=== PATIENT | male | born 1940 | race Caucasian/White ===

== ENCOUNTER 2019-11-13 10:57 | Inpatient (IN) | payer OTHER ==
[~2019-11-13] VITALS: Ht 172.7 cm; Wt 83.0 kg
--- NOTE | ~2019-11-13 | HC ---
[facility] [place] [address] CONSULTATION Name: LENO SUH Room #: 207-P [facility] IN M.R.#: [id number] Admission: 11/18/19 Attend Phys: Lewis Alvarez MD Discharge: Date of : 41 Report #: [id number] THIS REPORT FOR: //name// CC: Gabriel Alvarez DATE OF SERVICE: 11/24/2019 HISTORY OF PRESENT ILLNESS: The patient is as a 79-year-old white male with a history of coronary artery disease, diabetes mellitus type 2, prior history of CVA with residual aphasia and noted multiple TIAs, who was admitted with worsening coronary artery disease. He underwent coronary artery bypass grafting x 5 on 11/18/2019. His course was complicated by acute hypoxic respiratory failure. He had an episode of hypoglycemia. Small pleural effusion. He does have functional deficits with decreased balance and we are seeing him in rehabilitation medicine consultation. PAST MEDICAL HISTORY: Includes heart disease, hypertension. He was noted to have the CVA with some residual aphasia as noted above. He is uncertain what year it occurred and notes his would have all the dates. There is also a history of prior TIAs per the records. It is noted that the patient will need to resume Plavix once cleared by Surgery. MEDICATIONS: Please see the full medication listing. SOCIAL HISTORY: Lives with his , [address]-cruz home, was premorbidly independent, although he utilized a walker at times. He did have some premorbid balance issues and premorbid residual aphasia. REVIEW OF SYSTEMS: No current complaints of chest pain, shortness of breath or abdominal discomfort. PHYSICAL EXAMINATION: GENERAL: A 79-year-old white male in no obvious distress. VITAL SIGNS: Temperature 36.5, pulse 95, respirations 18, blood pressure 128/64. The patient is alert. He appears to have a decreased memory, but can follow basic commands without difficulty. HEENT: Facies appeared to be symmetric. He may have some word finding problems. Mid sternal incision appears to be intact. EXTREMITIES: He has functional range of motion of both upper extremities. Strength is grade 4-/5. DTRs are trace to 1. Lower extremities, no focal calf swelling. Leg incisions are dressed. Functional range of motion with strength grade 3+ to 4-/5. DTRs are 1-2. He has some mild decreased proprioception of the right large toe. Functionally, he is mod assist from sit to stand. Gait was 250 feet min assist without a device. He has problems with spiritual awareness, will list to the left into the right. [address] [address] CONSULTATION Name: LENO SHU Room #: 207-P [facility] IN M.R.#: [id number] Admission: 11/18/19 Attend Phys: Lewis Alvarez MD Discharge: Date of : 41 Report #: [id number] ASSESSMENT: A 79-year-old white male with the following problems: 1. Late effect cerebrovascular accident. 2. Balance, spatial awareness and mobility deficits. 3. Coronary artery disease, status post coronary artery bypass grafting x 5. 4. Acute hypoxic respiratory failure. 5. Diabetes mellitus type 2 with episode of hypoglycemia. 6. Pleural effusion. 7. Decreased proprioception/likely some component of diabetic peripheral neuropathy. 8. History of transient ischemic attacks in the past. We will need to resume Plavix when cleared by Surgery. PLAN: The patient would benefit from a short acute in-hospital inpatient rehabilitation stay to further improve his balance and especially to work on transfers as he is currently mod assist coming to stand. Need to work on further improving his functional mobility and ADLs, so that he can return back to the home setting. Insurance precertification issues will be checked regarding a short acute in-hospital inpatient rehabilitation stay. Thank you for asking us to assist in this patient's care. By: 1040 [id number] Ramses Reyes MD /PMT
[~2019-11-13 10:57] MED LIST: AMARYL2 MG PO; ASA81BEC PO; CRESTOR5 MG PO; FISH OIL 1,0001 EAC9 PO; FUROSEMIDE 20 M20 MG PO; HYDROCHLOROTH12.5 M1 PO; JANUVIA 50 MG T50 MG PO; K-DUR10 MEQ PO; LATANOPROST 0.2.5 ML OPHTHALMIC; LEVEMIR100 UNIT/1 INJECTION; LISINOPRIL-HCT1 EACH PO; METFORMIN HCL500 MG PO; NITROGLYCERIN0.4 MG SUBLING; PLAVIX 75 MG TA75 MG PO; PRINIVIL10 MG PO; TIMOLOL MALEATE5 M1 OPHTHALMIC; TOPROL XL25 MG PO; TRESIBA100 UNIT/1 SUBQ
[2019-11-13] MEDS ORDERED: ASPIRIN EC325 M1 PO (13:33)
[2019-11-13 14:37] LABS: ABSOLUTE NEUTROPHILS 4.8 thou/uL (1.4-8.2); BASOPHILS 0.6 % (0.0-2.0); EOSINOPHILS 4.6 % (0.0-3.0); HEMATOCRIT 42.1 % (42.0-52.0); LYMPHOCYTES 22.5 % (24.0-44.0); MCH 30.2 pg (26.0-34.0); MCHC 33.3 g/dL (28.0-37.0); MCV 90.6 fL (80.0-100.0); MONOCYTES 7.7 % (1.0-8.0); PLATELET COUNT 410 thou/uL (150-400); POLYS 64.6 % (36.0-66.0); RBC 4.64 mil/uL (4.50-6.00); RDW 13.3 % (10.5-14.5); WBC 7.5 thou/uL (4.0-11.0)
[2019-11-13 14:51] LABS: ALBUMIN 4.1 g/dL (3.4-5.0); CREATININE 0.9 mg/dL (0.7-1.3); POTASSIUM 4.5 mmol/L (3.5-5.1); TOTAL BILIRUBIN 0.5 mg/dL (<0.1-1.0); TOTAL PROTEIN 8.9 g/dL (6.4-8.2)
[2019-11-13 14:54] LABS: URINE BILIRUBIN NEGATIVE (Negative); URINE BLOOD NEGATIVE (Negative); URINE CLARITY CLEAR; URINE COLOR YELLOW; URINE GLUCOSE-RANDOM* 2+ (Negative); URINE KETONES NEGATIVE (Negative); URINE LEUKOCYTES-REFLEX NEGATIVE (Negative); URINE NITRITE-REFLEX NEGATIVE (Negative); URINE PROTEIN (DIPSTICK) NEGATIVE (Negative); URINE SPECIFIC GRAVITY 1.015 (1.005-1.035); URINE UROBILINOGEN 0.2 E.U./dl (0.2-1.0)
[2019-11-13 14:58] LABS: APTT 31.7 Seconds (24.5-32.8); PROTIME 10.6 Seconds (9.3-11.4)
[2019-11-18] VITALS (33 sets, daily range): BP systolic 69–141; BP diastolic 35–69
[2019-11-18 12:07] LABS: HEMATOCRIT 20.4 % (42.0-52.0); HEMOGLOBIN 7.1 gm/dL (14.0-18.0); MCH 31.1 pg (26.0-34.0); MCHC 34.7 g/dL (28.0-37.0); MCV 89.9 fL (80.0-100.0); RBC 2.27 mil/uL (4.50-6.00); RDW 12.8 % (10.5-14.5); WBC 8.9 thou/uL (4.0-11.0)
[2019-11-18 12:19] LABS: APTT 32.6 Seconds (24.5-32.8); FIBRINOGEN 192.2 mg/dL (210-360); PROTIME 16.8 Seconds (9.3-11.4)
[2019-11-18 12:22] LABS: INR 1.6
[2019-11-18 12:44] LABS: POC BE 3 mmol/L (-2.0 to +3.0); POC CA IONIZED 3.8 mg/dL (4.5-5.3); POC GLUCOSE 67 mg/dL (70-99); POC HCO3 26.2 mmol/L (22.0-26.0); POC HEMOGLOBIN 7.8 g/dL (14.0-18.0); POC POTASSIUM 4.1 mmol/L (3.5-5.1); POC SODIUM 126 mmol/L (136-145); POC pCO2 32.7 mmHg (35.0-45.0); POC pH 7.512 (7.360-7.450)
[2019-11-18 12:44] LABS: POC BE 4 mmol/L (-2.0 to +3.0); POC CA IONIZED 4.4 mg/dL (4.5-5.3); POC GLUCOSE 79 mg/dL (70-99); POC HCO3 27.1 mmol/L (22.0-26.0); POC HEMOGLOBIN 10.9 g/dL (14.0-18.0); POC POTASSIUM 3.8 mmol/L (3.5-5.1); POC SODIUM 126 mmol/L (136-145); POC pCO2 32.3 mmHg (35.0-45.0); POC pH 7.533 (7.360-7.450)
[2019-11-18 12:44] LABS: POC BE 3 mmol/L (-2.0 to +3.0); POC CA IONIZED 4.5 mg/dL (4.5-5.3); POC GLUCOSE 64 mg/dL (70-99); POC HCO3 27.7 mmol/L (22.0-26.0); POC HEMOGLOBIN 10.5 g/dL (14.0-18.0); POC POTASSIUM 3.5 mmol/L (3.5-5.1); POC SODIUM 127 mmol/L (136-145); POC pCO2 41.3 mmHg (35.0-45.0); POC pH 7.434 (7.360-7.450)
[2019-11-18 12:44] LABS: POC BE -1 mmol/L (-2.0 to +3.0); POC CA IONIZED 2.8 mg/dL (4.5-5.3); POC GLUCOSE 66 mg/dL (70-99); POC HCO3 22.4 mmol/L (22.0-26.0); POC HEMOGLOBIN 8.8 g/dL (14.0-18.0); POC SODIUM 138 mmol/L (136-145); POC pCO2 30.6 mmHg (35.0-45.0); POC pH 7.472 (7.360-7.450)
[2019-11-18 12:45] LABS: POC BE 4 mmol/L (-2.0 to +3.0); POC CA IONIZED 4.7 mg/dL (4.5-5.3); POC GLUCOSE 104 mg/dL (70-99); POC HEMOGLOBIN 7.8 g/dL (14.0-18.0); POC POTASSIUM 3.6 mmol/L (3.5-5.1); POC SODIUM 129 mmol/L (136-145); POC pCO2 32.1 mmHg (35.0-45.0); POC pH 7.533 (7.360-7.450)
[2019-11-18 12:45] LABS: POC BE 4 mmol/L (-2.0 to +3.0); POC GLUCOSE 126 mg/dL (70-99); POC HCO3 27.6 mmol/L (22.0-26.0); POC HEMOGLOBIN 7.8 g/dL (14.0-18.0); POC POTASSIUM 4.7 mmol/L (3.5-5.1); POC SODIUM 128 mmol/L (136-145); POC pCO2 38.6 mmHg (35.0-45.0); POC pH 7.462 (7.360-7.450)
[2019-11-18 12:45] LABS: POC BE 1 mmol/L (-2.0 to +3.0); POC CA IONIZED 4.4 mg/dL (4.5-5.3); POC GLUCOSE 92 mg/dL (70-99); POC HCO3 24.6 mmol/L (22.0-26.0); POC HEMOGLOBIN 8.8 g/dL (14.0-18.0); POC POTASSIUM 3.3 mmol/L (3.5-5.1); POC SODIUM 132 mmol/L (136-145); POC pCO2 32.1 mmHg (35.0-45.0); POC pH 7.492 (7.360-7.450)
[2019-11-18 12:45] LABS: POC BE 4 mmol/L (-2.0 to +3.0); POC CA IONIZED 3.9 mg/dL (4.5-5.3); POC GLUCOSE 67 mg/dL (70-99); POC HCO3 26.6 mmol/L (22.0-26.0); POC HEMOGLOBIN 8.2 g/dL (14.0-18.0); POC POTASSIUM 3.9 mmol/L (3.5-5.1); POC SODIUM 127 mmol/L (136-145); POC pCO2 32.2 mmHg (35.0-45.0); POC pH 7.525 (7.360-7.450)
[2019-11-18 12:45] LABS: POC BE 5 mmol/L (-2.0 to +3.0); POC CA IONIZED 4.9 mg/dL (4.5-5.3); POC GLUCOSE 111 mg/dL (70-99); POC HEMOGLOBIN 7.1 g/dL (14.0-18.0); POC SODIUM 129 mmol/L (136-145); POC pH 7.511 (7.360-7.450)
[2019-11-18 12:45] LABS: POC BE 5 mmol/L (-2.0 to +3.0); POC CA IONIZED 4.2 mg/dL (4.5-5.3); POC GLUCOSE 126 mg/dL (70-99); POC HCO3 29.6 mmol/L (22.0-26.0); POC HEMOGLOBIN 7.5 g/dL (14.0-18.0); POC POTASSIUM 4.5 mmol/L (3.5-5.1); POC SODIUM 128 mmol/L (136-145); POC pH 7.426 (7.360-7.450)
[2019-11-18 12:45] LABS: POC BE 4 mmol/L (-2.0 to +3.0); POC CA IONIZED 3.9 mg/dL (4.5-5.3); POC GLUCOSE 159 mg/dL (70-99); POC HCO3 27.5 mmol/L (22.0-26.0); POC HEMOGLOBIN 8.2 g/dL (14.0-18.0); POC POTASSIUM 3.7 mmol/L (3.5-5.1); POC SODIUM 127 mmol/L (136-145); POC pCO2 34.9 mmHg (35.0-45.0); POC pH 7.504 (7.360-7.450)
--- NOTE | 2019-11-18 13:10 | NUR ---
RECIEVED PT FROM OR S/P CABG X 5. SEE PAPER FLOW SHEET FOR NOTES AND GTT TITRATIONS. BP VERY LABILE, TITRATING LEVOPHED.
[2019-11-18 13:39] LABS: HEMATOCRIT 27.4 % (42.0-52.0); MCH 30.1 pg (26.0-34.0); MCHC 33.7 g/dL (28.0-37.0); MCV 89.4 fL (80.0-100.0); RBC 3.06 mil/uL (4.50-6.00); RDW 13.2 % (10.5-14.5)
[2019-11-18 13:41] LABS: HEMOGLOBIN 9.2 gm/dL (14.0-18.0)
[2019-11-18 13:46] LABS: CALCIUM 7.9 mg/dL (8.5-10.1); CREATININE 0.6 mg/dL (0.7-1.3); POTASSIUM 3.6 mmol/L (3.5-5.1)
[2019-11-18 13:47] LABS: MAGNESIUM 2.1 mg/dL (1.8-2.4)
[2019-11-18 13:47] LABS: BE(vivo) -4.5 mmol/L (-2 to +3); HCO3 19.8 mmol/L (22.0-26.0); PCO2 33.3 mmHg (35.0-45.0); PO2 158.1 mmHg (80.0-100.0); pH 7.391 (7.360-7.450)
[2019-11-18 13:52] LABS: APTT 33.4 Seconds (24.5-32.8); INR 1.4; PROTIME 14.1 Seconds (9.3-11.4)
--- NOTE | 2019-11-18 18:00 | NUR ---
CALLED DR. CORNELL, RE . ORDERS GIVEN TO TRANSFUSE. UPDATE GIVEN. REPORTED DOBUTAMINE STARTED, CO/CI NORMALIZING. SEE VSS. PT PROGRESSING TOWARDS GOALS. ABLE TO LIFT HEAD OFF OF PILLOW AND FOLLOWING ALL COMMANDS BUT REMAINS SEDATE, NO OVERBREATHING VENT. TITRATING DOBUTREX FOR CI > 2.0 AND SBP > 90. LEVOPHED WEANED OFF. TOTAL 1 FFP AND 2 ALBUMIN GIVEN SO FAR. BP REMAINS LABILE AT TIMES.
--- NOTE | 2019-11-18 19:40 | NUR ---
UNIT 1 FFP WAS CHECKED WITH YURY MARTINEZ.
[2019-11-18 20:42] LABS: BE(vivo) -4.8 mmol/L (-2 to +3); HCO3 20.4 mmol/L (22.0-26.0); PCO2 38.2 mmHg (35.0-45.0); PO2 160.3 mmHg (80.0-100.0); pH 7.346 (7.360-7.450)
[2019-11-18 21:20] LABS: BE(vivo) -4.8 mmol/L (-2 to +3); HCO3 20.7 mmol/L (22.0-26.0); PCO2 39.9 mmHg (35.0-45.0); PO2 159.8 mmHg (80.0-100.0); pH 7.332 (7.360-7.450); sO2 98.9 % (92.0-98.0)
--- NOTE | 2019-11-18 21:28 | NUR ---
PT DROWSY DURING INITIAL ASSESSMENT. ABLE TO FOLLOW COMMANDS WHILE ON THE VENT. ON [id number], TITRATED. VSS. AFEBRILE. CPAP TRAIL INITIATED AT 2049, PT TOLERATED CPAP TRAIL. EXTUBATED AT 2127. AFTER EXTUBATION VSS. OFF DOBUTAMINE GTT. CT DRAINING AND RECORDED HOURLY. URINE OUTPUT RECORDED. MEDICATED FOR PAIN RELIEF. EDUCATED PT ABOUT DEEP BREATHING EXERCISES AND THE USE OF IS. WILL CONTINUE TO MONITOR. PT SLOWLY PROGRESSING TOWARDS GOALS.
[2019-11-18 22:36] LABS: BE(vivo) -5.1 mmol/L (-2 to +3); HCO3 20.7 mmol/L (22.0-26.0); PCO2 41.8 mmHg (35.0-45.0); PO2 123.4 mmHg (80.0-100.0); pH 7.313 (7.360-7.450); sO2 98.2 % (92.0-98.0)
[2019-11-19] VITALS (12 sets, daily range): BP systolic 103–153; BP diastolic 48–66
--- NOTE | 2019-11-19 00:53 | NUR ---
CARDENE GTT STARTED AT 0040, TITRATED TO KEEP SBP LESS THAN 140. WILL CONTNUE TO MONITOR PT
[2019-11-19 05:50] LABS: CALCIUM 7.8 mg/dL (8.5-10.1); CREATININE 0.7 mg/dL (0.7-1.3); MAGNESIUM 2.2 mg/dL (1.8-2.4); POTASSIUM 4.1 mmol/L (3.5-5.1)
[2019-11-19 05:53] LABS: HEMOGLOBIN 8.3 gm/dL (14.0-18.0); MCH 30.7 pg (26.0-34.0); MCHC 34.6 g/dL (28.0-37.0); MCV 88.9 fL (80.0-100.0); RBC 2.7 mil/uL (4.50-6.00); RDW 14.1 % (10.5-14.5); WBC 7.4 thou/uL (4.0-11.0)
--- NOTE | 2019-11-19 07:21 | NUR ---
PT UP TO CHAIR THIS AM. TOLERATED ACTIVITY. MINIMAL COMPLAINS OF PAIN/ PT PROGRESSING TOWARDS GOALS. WILL CONTINUE TO MONITOR
--- NOTE | 2019-11-19 08:07 | NUR ---
Received consult for diet education. S/P CABG x 5 on 11/18. Will address nutrition education needs once transferred out of ICU and at more appropriate time
--- NOTE | 2019-11-19 10:43 | O ---
[facility] [address] OPERATIVE REPORT Name: LENO SUH Yesica Room #: 247-P [facility] IN M.R.#: [id number] Admission: 11/18/19 Attend Phys: Lewis Alvarez MD Discharge: Date of : 41 Report #: [id number] THIS REPORT FOR: //name// CC: Gabriel Alvarez DATE OF SERVICE: 11/18/2019 PREOPERATIVE DIAGNOSIS: Coronary artery disease. POSTOPERATIVE DIAGNOSIS: Coronary artery disease. OPERATION: Coronary artery bypass x 5 including left internal mammary artery to left anterior descending artery, saphenous vein to diagonal, ramus, and marginal and saphenous vein to posterior descending artery and endoscopic harvest, left greater saphenous vein. SURGEON: Lewis Alvarez MD COMPLAINT INVESTIGATOR: ALEX Robles. ANESTHESIA: General. INDICATIONS: The patient is a 79-year-old seen for Dr. Aguiar patient presents with angina. Catheterization demonstrates a 95% proximal right coronary lesion in the 60% left main and high-grade proximal LAD lesions. Left ventricular function is satisfactory overall. FINDINGS AND TECHNIQUE: After general anesthesia was established, saphenous vein was harvested using an endoscopic approach and prepared for use as a conduit. Exposure was obtained through median sternotomy. Left internal mammary artery was harvested. Pericardial well was made. Cannulation sutures were placed. Heparin was given. Aorta was cannulated. Right atrium was cannulated. Cardioplegia needle was positioned in the aortic root. Retrograde cardioplegic catheter was placed in coronary sinus. Cardiopulmonary bypass was established. Aorta was cross clamped antegrade, then retrograde, cardioplegia were given. Ice was poured into the pericardial well. The heart was stopped. During electromechanical arrest, the distal anastomoses were performed and end-to-side anastomosis was made between vein and the posterior descending artery. Cold cardioplegia was given. A separate segment of vein was sewn in end-to-side fashion to the marginal artery. Cold cardioplegia was given. Same segment of vein was sewn end-to-side to the large intramyocardial ramus intermedius. Cold cardioplegia was given. Same segment of vein was sewn in end-to-side fashion to the diagonal artery. Cold cardioplegia was given. Left internal mammary artery was sewn in end-to-side fashion to the left anterior [facility] [address] [place] [address] OPERATIVE REPORT Name: LENO SUH Room #: 247-P [facility].#: [id number] Admission: 11/18/19 Attend Phys: Lewis Alvarez MD Discharge: Date of : 41 Report #: [id number] descending artery. Left internal mammary artery was sewn end-to-side to the left anterior descending artery. This anastomosis was checked with the temperature technique. Cold cardioplegia was given. Two proximal anastomoses were performed and these were complete, warm retrograde cardioplegia was given followed by warm continuous blood to the coronary sinus. When this infusion was complete, the crossclamp was removed, de-airing maneuvers were performed. The anastomoses were inspected and found to be satisfactory. As the patient warmed, nice cardiac activity resumed, chest tubes and pacing wires were placed, a marker was placed around the proximal anastomoses. When the patient was warmed, she was weaned from cardiopulmonary bypass. Venous cannula was removed. Protamine was given, the aortic cannula was removed. Flows were measured in the bypass grafts. When hemostasis was satisfactory, chest was irrigated with antibiotic solution and closed in the usual fashion. The patient was taken to the Intensive Care Unit in good condition having tolerated the procedure well. All counts reported as correct. <ELECTRONICALLY SIGNED> By: Lewis Alvarez MD 11/19/19 1043 0931 1000 Lewis Alvarez MD /nt
--- NOTE | 2019-11-19 14:45 | NUR ---
PHYSICAL THERAPY EXPRESSING CONCERN OVER PT SPEECH AND COGNITION. PT SOMETIMES HAS TROUBLE WITH WORD RETREIVAL AND IS SOMEWHAT CONFUSED AT TIMES. PT STATES THIS IS NOT A CHANGE FROM PRE OP AND THAT HE HAD A RECENT TIA/STROKE IN OCTOBER. DR. PÉREZ ORDERED SPEECH TO EVALUATE PT.
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
--- NOTE | 2019-11-19 17:08 | EKG ---
[place] [address] [employer] [place] [address] ELECTROCARDIOGRAM REPORT Name: LENO SUH Room #: 247-P ADM IN M.R.#: [id number] Admission: 11/18/19 Attend Phys: Lewis Alvarez MD Discharge: Date of : 41 Report #: [id number] THIS REPORT FOR: //name// [facility] Test Date: 2019-11-18 Test Time: 15:53:55 Pat Name: LENO SUH Department: Room: [facility] P Gender: M Carpet Or Rug Layer Helper: Kelvin THOPMSON : 1940 Requested By: Paul Dumont Order Number: [id number] MD: Miguel Morrison Measurements Intervals [place] Rate: 61 P: 7 MN: 227 QRS: -60 QRSD: 105 T: 74 QT: 440 QTc: 444 Interpretive Statements Sinus rhythm Prolonged MN interval Left anterior fascicular block Abnormal R-wave progression, early transition No previous ECG available for comparison Electronically Signed On 11-19-2019 17:08:00 PATTERNMAKER SAMPLE by Miguel Morrison [email or web address] <ELECTRONICALLY SIGNED> By: Miguel Morrison MD, [facility] 11/19/19 1708 1553 1553 Miguel Morrison MD, [facility] /EPI
--- NOTE | 2019-11-19 17:13 | EKG ---
[place] [address] [facility] [place] [address] ELECTROCARDIOGRAM REPORT Name: VIKASH,LENO Yesica Room #: 247-P ADM IN M.R.#: [id number] Admission: 11/18/19 Attend Phys: Lewis Alvarez MD Discharge: Date of : 41 Report #: [id number] THIS REPORT FOR: //name// [facility] Test Date: 2019-11-19 Test Time: 07:11:33 Pat Name: LENO SUH Department: Room: 247 P Gender: M Resident Programs Assistant: BAL : 1940 Requested By: Paul Dumont Order Number: [id number] MD: Miguel Morrison Measurements Intervals [place] Rate: 72 P: -6 VA: 135 QRS: -44 QRSD: 106 T: 84 QT: 398 QTc: 436 Interpretive Statements Sinus rhythm Left anterior fascicular block Abnormal R-wave progression, early transition Minimal diffuse ST elevation, consider pericarditis No previous ECG available for comparison Electronically Signed On 11-19-2019 17:12:21 HOOP FLARING MACHINE OPERATOR HELPER by Miguel Morrison [email or web address] <ELECTRONICALLY SIGNED> By: Miguel Morrison MD, [facility] 11/19/19 1712 0 0 Miguel Morrison MD, [facility] /EPI
--- NOTE | 2019-11-19 20:09 | NUR ---
pt is CCU overflow
--- NOTE | 2019-11-19 20:33 | NUR ---
pT PROGRESSING TOWARDS GOALS .. MS TUBES AND SWAN ARE OUT. HTN AT TIMES, DR. CORNELL AWARE. PRN MEDS AVAILIABLE. 70CC FROM [facility] IN PLEURAL TUBE.
[2019-11-20] VITALS (19 sets, daily range): BP systolic 108–158; BP diastolic 54–73
--- NOTE | 2019-11-20 05:21 | NUR ---
PT STARTED ON CARDENE GTT THIS AM. PT IN THE 190S [place] PRN DOSES OF AMLODIPINE GIVEN X2. WIDE DIFFERENCE BETWEEN CUFF PRESSURE AND ARTLINE. PT CURRENTLY STABLE. DENIED PAIN THIS AM. ADEQUATE URINE OUTPUT GREATER THAN 30CC/HR. PLUERAL CHEST TUBE DRAINING, OUTPUT NOTED. WILL CONTINUE TO MONITOR.
[2019-11-20 05:47] LABS: HEMATOCRIT 24.7 % (42.0-52.0); HEMOGLOBIN 8.5 gm/dL (14.0-18.0); MCH 30.3 pg (26.0-34.0); MCHC 34.4 g/dL (28.0-37.0); MCV 88.3 fL (80.0-100.0); RBC 2.8 mil/uL (4.50-6.00); RDW 14.3 % (10.5-14.5); WBC 8.7 thou/uL (4.0-11.0)
[2019-11-20 05:57] LABS: CALCIUM 8.1 mg/dL (8.5-10.1); CREATININE 0.6 mg/dL (0.7-1.3); POTASSIUM 4.6 mmol/L (3.5-5.1)
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
[2019-11-21] VITALS (24 sets, daily range): BP systolic 91–146; BP diastolic 53–82
--- NOTE | 2019-11-21 00:37 | NUR ---
ARTLINE D/C, NOT FUNCTIONING APPROPIATELY. MANUAL BP READING IN THE 120S. PT CURRENTLY STABLE. AOX4. NO COMPLAINS OF PAIN. MONITORING PLUERAL CT. PROGRESSING TOWARDS GOALS. WILL CONTINUE TO MONITOR.
--- NOTE | 2019-11-21 10:42 | NUR ---
ALERT AND ORIENTED AND HAS DENIED PAIN. VITALS STABLE. UP TO CHAIR WITH MINIMAL ASSIST WITH GAIT BELT. CHEST TUBE AND PACER WIRES INTACT DOCUMENTED. TOLERATING DIET WELL W/O NAUSEA. WILL CONTINUE WITH POC AND TRANSFER TO CCU ONCE ORDERS OBTAINED FROM SURGEON.
[2019-11-21 13:36] LABS: CALCIUM 8.7 mg/dL (8.5-10.1); MAGNESIUM 1.7 mg/dL (1.8-2.4); POTASSIUM 3.9 mmol/L (3.5-5.1)
--- NOTE | 2019-11-21 15:00 | NUR ---
MONITOR SHOWING ST WITH RARE PVD, SERUM BMP AND MAG DRAWN PER ORDER FOR EARLIER RUN OF VTACH AND MAG SULFATE INFUSED PER PROTOCOL FOR MAG OF 1.7. DR MACHADO INFORMED OF RHYTHM AND POC. NO ADDITIONAL ORDERS NOTED.
--- NOTE | 2019-11-21 18:50 | NUR ---
PATIENT PROGRESSING TOWARDS GOALS.
[2019-11-21] MEDS ORDERED: AMARYL4 MG PO (19:54)
[2019-11-21] MEDS ORDERED: JANUVIA100 MG PO (19:55)
[2019-11-22] VITALS (16 sets, daily range): BP systolic 99–154; BP diastolic 51–67
[2019-11-22 04:33] LABS: CALCIUM 9.2 mg/dL (8.5-10.1); CREATININE 0.7 mg/dL (0.7-1.3); POTASSIUM 3.3 mmol/L (3.5-5.1)
[2019-11-22 04:40] LABS: HEMATOCRIT 26.5 % (42.0-52.0); HEMOGLOBIN 9.1 gm/dL (14.0-18.0); MCH 31.1 pg (26.0-34.0); MCHC 34.5 g/dL (28.0-37.0); MCV 90.2 fL (80.0-100.0); RBC 2.93 mil/uL (4.50-6.00); RDW 14.3 % (10.5-14.5)
--- NOTE | 2019-11-22 04:46 | NUR ---
NO OVERNIGHT EVENTS. PT. SLEPT THROUGH MOST OF NIGHT. DENIES PAIN. MOVED FROM CHAIR AT BED AT BEGINNING OF SHIFT WITH DAY RN. ASSESSMENTS AND VITAL SIGNS CHARTED. CONITINUE TO FOLLOW POC. PT. SHOULD BE ABLE TO TRANSFER OUT TODAY, WILL CONTINUE TO MONITOR.
--- NOTE | 2019-11-22 16:56 | NUR ---
PATIENT ALERT AND ORIENTED AND VITALS STABLE. DENIES PAIN, UP WITH MINIMAL ASSIST. TOLERATING DIET W/O NAUSEA BUT HAVING EPISODES OF DIARRHEA INCONTINENCE. TRANSFER ORDERS TO CCU, PATIENT TAKEN TO RADIOLOGY BY Kriss HERRERA FOR PA/JOSUE XRAY AND REPORT CALLED TO CYNDEE IN CCU. PATIENT TRANSFERRED TO 207, CALL PLACED TO SPOUSE TO NOTIFY OF NEW ROOM, MESSAGE LEFT ON VOICE MAIL. TOILETRIES WITH PATIENT BUT NO PERSONAL BELONGINGS IN THE ROOM.
--- NOTE | 2019-11-22 19:40 | NUR ---
ASSUMED CARE OF PATIENT FROM ICU NURSE, RAYA TEJADA AT 1625. PATIENT AMBULATED WITH A STAND BY ASSIST FROM THE WHEELCHAIR TO HIS BED, STEADILY. HE USES APPROPRIATE MOVING POST OPEN HEART, HUGGING HIS HEART PILLOW. PATIENT DENIES ANY PAIN. PATIENT ANY CHEST PAIN. ASSESSMENT COMPLETED. TELE MONITOR PLACED AND STRIP PRINTED. PATIENT ACCUCHECK AC&HS AND SUPPLEMENTED APPROPRIATELY. PATIENT TO CONTINUE WITH POC.
[2019-11-23 04:59] LABS: CALCIUM 9.6 mg/dL (8.5-10.1); CREATININE 0.8 mg/dL (0.7-1.3); POTASSIUM 3.9 mmol/L (3.5-5.1)
[2019-11-23 05:17] VITALS: BP 153/67
--- NOTE | 2019-11-23 07:26 | NUR ---
ASSESSMENTS CHARTED, MEDS GIVEN CHARTED. PATIENT RESTING IN BED DURING SHIFT. DENIED PAIN. SINUS TACH, SINUS RHYTHM DURING SHIFT. ON ROOM AIR. PLAN OF CARE IS TO CONTINUE GETTING STRONGER, CHECK CHEST XRAY THIS MORNING. PT AND OT, SHOWER PRIOR TO GOING HOME.
--- NOTE | 2019-11-23 11:22 | EKG ---
[place] [address] [address] [place] [address] ELECTROCARDIOGRAM REPORT Name: LENO SUH Room #: 207-P ADM IN M.R.#: [id number] Admission: 11/18/19 Attend Phys: Lewis Alvarez MD Discharge: Date of : 42 Report #: [id number] THIS REPORT FOR: //name// [facility] Test Date: 2019-11-22 Test Time: 07:13:17 Pat Name: LENO MÉNDEZWELL Department: Room: 207 Gender: M Clinical Provider Trainer: RUMA : 1940 Requested By: Paul Dumotn Order Number: [id number] MD: Oli Tamayo Measurements Intervals [place] Rate: 99 P: -10 PA: 114 QRS: -47 QRSD: 101 T: 99 QT: 341 QTc: 438 Interpretive Statements Sinus rhythm Left anterior fascicular block Abnormal R-wave progression, early transition Borderline repolarization abnormality Compared to ECG 11/19/2019 07:11:33 Electronically Signed On 11-23-2019 11:21:50 BEARING INSPECTOR by Oli Tamayo [email or web address] <ELECTRONICALLY SIGNED> By: Oli Tamayo MD 11/23/19 1121 2 2 Oli Tamayo MD /EPI
[2019-11-23 11:53] VITALS: BP 134/62
[2019-11-23 16:45] VITALS: BP 133/58
--- NOTE | 2019-11-23 19:48 | NUR ---
ASSUMED CARE OF PATIENT AT 0700. ASSESSMENT COMPLETED. TELE STRIP PRINTED AND PLACED IN CHART. PATIENT AMBULATED WITH PT AND MYSELF TWICE AROUND THE UNIT WITH A WALKER. PATIENT'S GAIT CONTINUES TO BE "OFF" A LITTLE AND NOTICABLE TO THE PATIENT WELL. DENIES ANY CHEST PAIN OR SHORTNESS OF AIR TODAY. PATIENT IS HOPING TO GO HOME TOMORROW. PATIENT TO CONTINUE WITH POC.
[2019-11-23 20:15] VITALS: BP 139/66
[2019-11-24 04:45] VITALS: BP 136/61
[2019-11-24 07:25] VITALS: BP 128/64
--- NOTE | 2019-11-24 08:04 | NUR ---
ASSESSMENTS CHARTED, MEDS GIVEN CHARTED. PATIENT DOING WELL DURING SHIFT. NO COMPLAINTS. ACCUCHECKS ON MODERATE SSI. VSS. UP WITH WALKER. PATIENT IS HOPING TO GO HOME TODAY.
[2019-11-24 11:00] VITALS: BP 119/62
--- NOTE | 2019-11-24 14:19 | NUR ---
PATIENT IS A CANDIDATE FOR ACUTE REHAB STAY. AUTHORIZATION FOR ACUTE REHAB STAY REQUESTED FROM INSURANCE THIS DATE. WILL AWAIT RESPONSE. WIRE COILER MACHINE OPERATOR INFORMED.
--- NOTE | 2019-11-24 14:24 | NUR ---
Followup: s/p CABG 11/18. Appetite is good. Pt states checks his BG, and prepares meals for him at home. He does not use any added sugars and says watches diet closely. Denied need for diet education. Low nutrition risk
--- NOTE | 2019-11-24 16:26 | NUR ---
CALL BACK RECEIVED FROM PATIENT'S INSURER, [employer]. THEIR FARM IMPLEMENT ENGINE MECHANIC, LUCRECIA, STATED THAT AUTHORIZATION REQUEST LACKS SUPPORT TO BE APPROVED. PATIENT CAN SAFELY RECEIVE CARE IN ANOTHER SETTING, IN EXAMPLE, SNF. PEER TO PEER CAN BE COMPLETED BY CALLING [phone] BY 11:00 AM NOV 28 TO SET UP CALL. GARNETT MACHINE OPERATOR INFORMED. THANK YOU FOR THIS REFERRAL.
--- NOTE | 2019-11-24 16:43 | NUR ---
Patient assessed for 5N insurance denied. Discussed with post acute care. She reports her hope it to take him home. Patient moderate cog impairments per therapy and not always follow precautions. Plan for therapy to see in am. Cm to sp with regarding HH and increase care as opposed to Skilled rehab.
[2019-11-24 17:00] VITALS: BP 126/59
--- NOTE | 2019-11-24 18:20 | NUR ---
ASSESSMENT CHARTED. PT ALERT AND ORIENTED. VSS. UP IN THE CHAIR THIS SHIFT. DENIED HAVING PAIN OR DISCOMFORT. RUSTAM STERNUM DRESSING CHANGED THIS AM. PROGRESSING WELL TOWARDS DISCHARGE GOAL. WILL CONTINUE TO MONITOR.
[2019-11-24 20:15] VITALS: BP 127/65
[2019-11-25 04:45] VITALS: BP 135/58
--- NOTE | 2019-11-25 06:10 | NUR ---
ALERT.DENIES PAIN.UP WITH ASSIST TO THE BATHROOM.POSSIBLE GOING TO REHAB TODAY.WAITING FOR INSURANCE APPROVAL.POC CONTINUED.
[2019-11-25 07:30] VITALS: BP 143/69
[2019-11-25 11:30] VITALS: BP 107/70
[2019-11-25 13:52] VITALS: BP 107/70
[2019-11-25 13:54] VITALS: BP 107/70
[2019-11-25 13:55] VITALS: BP 107/70
--- NOTE | 2019-11-25 14:38 | NUR ---
Reviewed therapy aureliano sp with at bedside. Offered post acute care with [facility] post acute facilities for skilled care. prefers home with HH. She reports her dtr to assist during day and they have 15 year old grandson to help. strongly prefers home with HH care. CTS PA reports if can find HH agency to have RN for a week to monitor then agreeable for home. Referral to [facility] who is in network with insurance, services area and can staff a week of HH RN care. Updated CTS who is agreeable for dc planning.
--- NOTE | 2019-11-25 15:40 | NUR ---
ASSUMMED PT CARE AT APPROXIMATELY 0700. PT A&O X4. ASSESSMENT CHARTED. FALL PRECAUTIONS IN PLACE. STERNAL PRECAUTIONS IN PLACE. PT DENIES HAVING CHEST PAIN. PT DENIES HAVING SOB. PT STATED HE HAD NECK PAIN. PT RECEIVED ANALGESICS. PT STATED ANALGESICS HELPED RELIEVE PAIN. PT AND SPOUSE EDUCATED ABOUT POC. PT AND PT'S STATED UNDERSTANDING AND DENIED HAVING FURTHER QUESTIONS. IV DC. TELE DC. [employer]IC[employer] DRESSING REMOVED BY ALEX ANN. STERNAL INCISION OPEN TO AIR PER ALEX ANN ORDER. WELL APPROXIMATED. PT RECIEVED DISCHARGE EDUCATION. PT STATED UNDERSTANDING AND DENIED HAVING FURTHER QUESTIONS. VITAL SIGNS STABLE. BLOOD SUGARS STABLE. PT DISCHARGING HOME C HOME HEALTH. PT RECEIVING HOSPITAL TRANSPORT OFF UNIT. PT TRANSPORTED OFF UNIT AT APPROXIMATELY 1540.
--- NOTE | 2019-11-25 15:49 | NUR ---
patient to dc home with HH from [facility]. 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 reports support at home. orders rec and faxed. Confirmed with Karen they rec orders for start of care in am
== END 2019-11-25 15:41 | disposition home health service (06) | DRG 235 ==
LOC: ULTRA 10:57 → EDSTATUS 12:06 → TBA 11-18 05:39 → ICU 11-18 05:39 → PRE 11-18 11:26 → ICU 11-18 13:25 → PRE 11-18 19:48 → 2N 11-22 09:59 → ENTRNSPT 11-25 15:34 → EDTRNSPTSTS 11-25 15:37 → 2N 11-25 15:41
PROVIDERS: Physician Assistant; ADMIT Surgery Vascular Surgery
PROC: 021309W Bypass Coronary Artery, Four or More Arteries from Aorta with Autologous Venous Tissue, Open Approach (ICD-10-PCS; principal; 2019-11-18)
PROC: 06BQ4ZZ Excision of Left Saphenous Vein, Percutaneous Endoscopic Approach (ICD-10-PCS; principal; 2019-11-18)
PROC: 02100Z9 Bypass Coronary Artery, One Artery from Left Internal Mammary, Open Approach (ICD-10-PCS; principal; 2019-11-18)
PROC: 5A1221Z Performance of Cardiac Output, Continuous (ICD-10-PCS; principal; 2019-11-18)
PROC: 30233N1 Transfusion of Nonautologous Red Blood Cells into Peripheral Vein, Percutaneous Approach (ICD-10-PCS; principal; 2019-11-18)
PROC: 30233K1 Transfusion of Nonautologous Frozen Plasma into Peripheral Vein, Percutaneous Approach (ICD-10-PCS; principal; 2019-11-18)
DX: I25.10 Atherosclerotic heart disease of native coronary artery without angina pectoris (principal); J96.01 Acute respiratory failure with hypoxia; J90 Pleural effusion, not elsewhere classified; I47.1 Supraventricular tachycardia; E78.5 Hyperlipidemia, unspecified; I10 Essential (primary) hypertension; E11.649 Type 2 diabetes mellitus with hypoglycemia without coma; E11.42 Type 2 diabetes mellitus with diabetic polyneuropathy; D64.9 Anemia, unspecified; Z95.1 Presence of aortocoronary bypass graft; Z79.899 Other long term (current) drug therapy; I69.320 Aphasia following cerebral infarction
CPT/HCPCS: 10078; 10081; 47000; 47001; 47002; 47297; 48888; 50010; 50249; 50409; 50456; 50498; 50668; 51301; 52131; 52259; 52314; 53327; 53358; 54118; 56455; 56524; 56525; 56526; 56527; 56528; 56531; 56534; 56668; 56760; 56898; 57093; 57116; 57167; 62110; 62950; 65003; 65020; 65047; 65135; 85076